=== PATIENT | female | born 1960 | race Caucasian/White ===

== ENCOUNTER 2024-02-23 07:07 | Day surgery (SDC) | payer MEDICAID ==
[~2024-02-23] VITALS: Ht 162.6 cm; Wt 70.3 kg
[2024-02-23] MEDS ORDERED: fentaNYL CITRATE/PF 100 MCG/2 ML AMP ONE (07:38)
[2024-02-23] MEDS ORDERED: MIDAZOLAM HCL 5 MG/5 ML VIAL ONE (07:39)
[2024-02-23 10:56] VITALS: O2SAT 97
[2024-02-23 16:40] VITALS: BP_SYST 115; PULSE 68; RESP 16
== END 2024-02-23 09:04 | disposition home or self-care (01) ==
LOC: SDS 07:07 → SMU 07:07 → SDS 09:04
PROVIDERS: ATTEND Internal Medicine
DX: Z12.11 Encounter for screening for malignant neoplasm of colon (principal); D12.5 Benign neoplasm of sigmoid colon; K57.30 Diverticulosis of large intestine without perforation or abscess without bleeding; K64.8 Other hemorrhoids; I10 Essential (primary) hypertension; E11.9 Type 2 diabetes mellitus without complications; E78.00 Pure hypercholesterolemia, unspecified; Z90.49 Acquired absence of other specified parts of digestive tract; M85.80 Other specified disorders of bone density and structure, unspecified site; Z79.899 Other long term (current) drug therapy
CPT/HCPCS: 45385; 99152; 82948; 88305; G0378; J2250; J3010